=== PATIENT | male | born 1990 | race Caucasian/White ===

== ENCOUNTER 2017-10-29 02:02 | Emergency (ER) | payer SELFPAY ==
[2017-10-29] MEDS ORDERED: IPRATROPIUM/ALBUTEROL 0.5-2.5 MG/3 ML AMPUL NEB ONE (02:31)
[2017-10-29] MEDS ORDERED: PREDNISONE 20 MG TABLET PO ONE (02:31)
[2017-10-29] MEDS ORDERED: ACETAMINOPHEN 325 MG TABLET PO ONE (02:32)
--- NOTE | 2017-10-29 02:37 | ER Document Report ---
ED Respiratory Problem - General Chief Complaint: Asthma Exacerbation Stated Complaint: DIFFICULTY BREATHING Time Seen by Provider: 10/29/17 02:21 Mode of Arrival: Ambulatory Information source: Patient Notes: 27-year-old male presents to ED for shortness of breath chest tightness for the last 4 days. He states he is an asthmatic and has been since he was 18 going to school and fell out and they diagnosed him with asthma. He states he does have albuterol inhaler but he forgot that when he came to meet a girl in this area yesterday. States he does not take his normal medicines that he supposed to take for his medical history of ADHD PTSD bipolar panic attacks and anxiety because he does not like the way to make him feel. Says he does not go to doctors like he was supposed to. States she is the asthma tackled go on and off for 2 or 3 days uses an inhaler and it gets better but this time it is not. States he has been smoking since he was 8 years old and he smokes a pack to a pack and a half a day. TRAVEL OUTSIDE OF THE [place] IN LAST 30 DAYS: No - HPI Patient complains to provider of: Asthma, Cough, Short of breath Onset: Other - 4 days Duration: Continuous Initiating Event: URI, Other - Smoker Quality of pain: Other - Tight Severity: Moderate Pain Level: 3 Context: Hx asthma, Smoker Short of Breath: Mild Cough: Nonproductive Sputum amount: None At home treatment: Bronchodilators Associated symptoms: Chest pain/discomfort, Congestion, Cough, PND, Runny nose Similar symptoms previously: Yes Recently seen / treated by doctor: No - Related Data Allergies/Adverse Reactions: Penicillins Allergy (Verified 10/29/17 03:30) Past Medical History - General Information source: Patient - Social History Smoking Status: Current Every Day Smoker Cigarette use (# per day): Yes - 20-30 cigarettes a day Chew tobacco use (# tins/day): No Smoking Education Provided: Yes - 4 minutes Frequency of alcohol use: None Drug Abuse: None Occupation: Lost his job Lives with: Parents Family History: Reviewed & Not Pertinent Patient has suicidal ideation: No Patient has homicidal ideation: No - Past Medical History Cardiac Medical History: Reports: None Pulmonary Medical History: Reports: Hx Asthma EENT Medical History: Reports: None Neurological Medical History: Reports: None Endocrine Medical History: Reports: None Renal/ Medical History: Reports: None Malignancy Medical History: Reports None GI Medical History: Reports: None Musculoskeltal Medical History: Reports None Skin Medical History: Reports None Psychiatric Medical History: Reports: Hx Anxiety, Hx Attention Deficit Hyperactivity Disorder, Hx Bipolar Disorder, Hx Depression, Hx Post Traumatic Stress Disorder Traumatic Medical History: Reports: None Infectious Medical History: Reports: None Surgical Hx: Negative - Immunizations Immunizations up to date: Yes Hx Diphtheria, Pertussis, Tetanus Vaccination: Yes Review of Systems - Review of Systems Constitutional: No symptoms reported EENT: Nose discharge, Sinus discharge Cardiovascular: No symptoms reported Respiratory: Cough, Hurts to breathe, Short of breath, Wheezing Gastrointestinal: No symptoms reported Genitourinary: No symptoms reported Male Genitourinary: No symptoms reported Musculoskeletal: No symptoms reported Skin: No symptoms reported Hematologic/Lymphatic: No symptoms reported Neurological/Psychological: Anxiety -: Yes All other systems reviewed and negative Physical Exam - Vital signs Vitals: Temp Pulse Resp BP Pulse Ox 98.0 F 103 H 21 H 151/90 H 100 10/29/17 02:07 10/29/17 02:07 10/29/17 02:07 10/29/17 02:07 10/29/17 02:07 Interpretation: Normal - General General appearance: Appears well, Alert - HEENT Head: Normocephalic, Atraumatic Eyes: Normal Pupils: PERRL Ears: Normal External canal: Normal Tympanic membrane: Normal Sinus: Normal Nasal: Swelling, Clear rhinorrhea Mouth/Lips: Normal Mucous membranes: Normal Pharynx: Post nasal drainage Neck: Normal - Respiratory Respiratory status: No respiratory distress, Tachypnea. No: Respiratory distress, Agonal respirations, Cyanosis, Depressed respirations, Labored, Pursed lip breathing, Retractions, Tripod position Chest status: Nontender Breath sounds: Nonproductive cough. No: Rales, Rhonchi, Stridor, Wheezing Chest palpation: Normal - Cardiovascular Rhythm: Regular Heart sounds: Normal auscultation Murmur: No - Abdominal Inspection: Normal Distension: No distension Bowel sounds: Normal Tenderness: Nontender Organomegaly: No organomegaly - Back Back: Normal, Nontender - Extremities General upper extremity: Normal inspection, Nontender, Normal color, Normal ROM , Normal temperature General lower extremity: Normal inspection, Nontender, Normal color, Normal ROM , Normal temperature, Normal weight bearing. No: Marlene's sign - Neurological Neuro grossly intact: Yes Cognition: Normal Orientation: AAOx4 [place] Coma Scale Eye Opening: Spontaneous [place] Coma Scale Verbal: Oriented Ina Coma Scale Motor: Obeys Commands [place] Coma Scale Total: 15 Speech: Normal Motor strength normal: LUE, RUE, LLE, RLE Sensory: Normal - Psychological Associated symptoms: Normal affect, Normal mood - Skin Skin Temperature: Warm Skin Moisture: Dry Skin Color: Normal Course - Re-evaluation Re-evalutation: 10/29/17 06:09 Chest x-ray was negative. Patient was given a written report of the x-ray and a prescription for prednisone for his chronic asthma. Patient states he has an albuterol inhaler at home. He was treated with DuoNeb and albuterol nebulizer treatments here as well as prednisone 60 mg. Patient was instructed to please follow-up with the doctor and not to continue to just try to treat himself. - Vital Signs Vital signs: Temp Pulse Resp BP Pulse Ox 98.6 F 99 18 124/68 100 10/29/17 05:00 10/29/17 05:00 10/29/17 05:00 10/29/17 05:00 10/29/17 05:00 - Diagnostic Test Radiology reviewed: Image reviewed, Reports reviewed Discharge - Discharge Clinical Impression: Asthma exacerbation Qualifiers: Asthma severity: mild Asthma persistence: intermittent Qualified Code(s): J45.21 - Mild intermittent asthma with (acute) exacerbation Condition: Stable Disposition: HOME, SELF-CARE Instructions: Family Physicians / Practices Additional Instructions: ASTHMA: You have been diagnosed as having asthma. This is a condition where there is episodic tightness in the bronchial tubes. Allergies, infections, and polluted or cold air may be contributing factors. Emergency treatment of a severe asthma attack may include adrenaline shots , or bronchodilator aerosol. You may feel lightheaded, have a decreased exercise tolerance and a rapid pulse for an hour or two. Rest and get plenty of fluids. Home treatment of asthma requires bronchodilator drugs. These can be administered by injection, inhalation, or by mouth. Antibiotics and corticosteroids may be required for some patients. You should avoid chemical fumes, dusts, pollens, and exercising in very cold or dry air. If you smoke, stop!! If you develop a fever, increased wheezing, chest pain, or severe shortness of breath, you should contact the doctor immediately. STEROID MEDICATION: You have been given an injection of or oral medicine of the cortisone/ steroid class. This medication is used to control inflammation or allergy. Chidi t is usually only given for a short period of time, until the acute process subsides. There are usually no side effects from short-term use of cortisone-like medications. Some persons feel an increased sense of well-being and are not sleepy at bedtime. Long-term use of cortisone medications is best avoided, unless required for a severe condition. If your condition does not remit, or relapses after the course of corticosteroid medication, you should consult your physician. INHALED BRONCHODILATORS: You have received treatment(s) of and/or prescription for an inhaled bronchodilator -- a medication which stimulates the airways in the lung to dilate. This improves the flow of air in asthma, bronchitis, and emphysema. These medicines have some similarity to adrenaline, and can cause similar side effects: shakiness, racing heart, and a sense of nervousness. These side effects decrease with time. Contact your doctor if these side effects are severe. Do not over-use the medicine. Too-frequent use of the inhaler may make it ineffective. Call your doctor if the inhaler is not controlling your symptoms at the prescribed doses. SMOKING: If you smoke, you should stop smoking. The tar and chemicals in cigarette smoke are harmful. Smoking has been shown to cause: emphysema chronic bronchitis lung cancer mouth and throat cancer stomach and pancreas cancer premature aging defects In addition, smoking increases ear and lung infections in children of smokers. USE OF ACETAMINOPHEN (Tylenol): Acetaminophen may be taken for pain relief or fever control. It's much safer than aspirin, offering a wider range of "safe" dosages. It is safe during . Some brand names are Tylenol, Panadol, Datril, Anacin 3, Tempra, and Liquiprin. Acetaminophen can be repeated every four hours. The following are maximum recommended dosages: WEIGHT Dose Drops Elixir Chewable( 80mg) (LBS.) drprs=droppers tsp=teaspoon 6 40 mg 0.4 ml (1/2) 6-11 80 mg 0.8 ml (full) tsp 1 tab 12-16 120 mg 1 1/2 drprs 3/4 tsp 1 1/2 tabs 17-23 160 mg 2 drprs 1 tsp 2 tabs 24-30 240 mg 3 drprs 1 1/2 tsp 3 tabs 30-35 320 mg 2 tsp 4 tabs 36-41 360 mg 2 1/4 tsp 4 1/2 tabs 42-47 400 mg 2 1/2 tsp 5 tabs 48-53 480 mg 3 tsp 6 tabs 54-59 520 mg 3 1/4 tsp 6 1/2 tabs 60-64 560 mg 3 1/2 tsp 7 tabs 65-70 600 mg 3 3/4 tsp 7 1/2 tabs 71-76 640 mg 4 tsp 8 tabs 77-82 720 mg 4 1/2 tsp 9 tabs 83-88 800 mg 5 tsp 10 tabs >89 pounds or adults 650 mg to 900 mg Acetaminophen can be repeated every four hours. Maximum dose not to exceed 4000 mg a day. These maximum recommended dosages are slightly higher than the dosages written on the product container, but these dosages are very safe and below the toxic dosage for acetaminophen. FOLLOW-UP CARE: If you have been referred to a physician for follow-up care, call the physician s office for an appointment as you were instructed or within the next two days. If you experience worsening or a significant change in your symptoms, notify the physician immediately or return to the Emergency Department at any time for re-evaluation. Prescriptions: Prednisone [Deltasone 20 mg Tablet] 3 tab PO DAILY 5 Days tablet Forms: Elevated Blood Pressure, Smoking Cessation Education
[2017-10-29] MEDS ORDERED: ALBUTEROL SULFATE 0.083% NEB 2.5 MG/3 ML AMPUL NEB SCH (02:45)
--- NOTE | 2017-10-29 04:16 | RADIOLOGY REPORT (SQ) ---
EXAM DESCRIPTION: CHEST PA/LAT COMPLETED DATE/TIME: 10/29/2017 3:58 am REASON FOR STUDY: short of breath, cough COMPARISON: None. EXAM PARAMETERS: NUMBER OF VIEWS: two views TECHNIQUE: Digital Frontal and Lateral radiographic views of the chest acquired. RADIATION DOSE: NA LIMITATIONS: none FINDINGS: LUNGS AND PLEURA: No consolidation, pneumothorax or pleural effusion. MEDIASTINUM AND HILAR STRUCTURES: No masses or contour abnormalities. HEART AND VASCULAR STRUCTURES: Heart normal size. No evidence for failure. BONES: No acute findings. HARDWARE: None in the chest. IMPRESSION: No acute radiographic finding in the chest. TECHNICAL DOCUMENTATION: JOB ID: [id number] [employer]- All Rights Reserved
[2017-10-29 05:02] VITALS: BP 124/68
== END 2017-10-29 05:00 | disposition home or self-care (01) ==
LOC: ER 02:02
DX: J45.21 Mild intermittent asthma with (acute) exacerbation (principal); F17.210 Nicotine dependence, cigarettes, uncomplicated; Z88.0 Allergy status to penicillin
CPT/HCPCS: 94640; 99285; 71046; J7512; J7620

== ENCOUNTER 2018-06-20 14:48 | Emergency (ER) | payer SELFPAY ==
--- NOTE | 2018-06-20 15:14 | ER Document Report ---
HPI - HPI Patient complains to provider of: Cough Onset: Other - 2 weeks Pain Level: 2 Context: 28-year-old smoker male complaining of cough and congestion for 2 weeks. History of asthma. Albuterol metered-dose inhaler is out of date he has not nebulizer without medicine. Associated Symptoms: None Exacerbated by: Denies Relieved by: Denies Similar symptoms previously: Yes Recently seen / treated by doctor: No - ROS ROS below otherwise negative: Yes Systems Reviewed and Negative: Yes All other systems reviewed and negative Past Medical History - General Information source: Patient - Social History Smoking Status: Current Every Day Smoker Lives with: Spouse/Significant other Family History: Reviewed & Not Pertinent Pulmonary Medical History: Reports: Hx Asthma Renal/ Medical History: Denies: Hx Peritoneal Dialysis Psychiatric Medical History: Reports: Hx Anxiety, Hx Attention Deficit Hyperactivity Disorder, Hx Bipolar Disorder, Hx Depression, Hx Post Traumatic Stress Disorder - Immunizations Immunizations up to date: Yes Hx Diphtheria, Pertussis, Tetanus Vaccination: Yes Vertical Provider Document - CONSTITUTIONAL Agree With Documented VS: Yes Exam Limitations: No Limitations - INFECTION CONTROL TRAVEL OUTSIDE OF THE [place] IN LAST 30 DAYS: No - HEENT HEENT: Pharyngeal Erythema - NECK Neck: Supple. negative: Lymphadenopathy-Left, Lymphadenopathy-Right - RESPIRATORY Respiratory: Wheezing - Coarse bilateral inspiratory and expiratory - CARDIOVASCULAR Cardiovascular: Regular Rate, Regular Rhythm - NEURO Level of Consciousness: Awake - DERM Integumentary: No Rash Course - Re-evaluation Re-evalutation: 06/20/18 16:41 Chest x-ray is negative per rad but since he has been coughing with congestion for 2 weeks I will treat him with albuterol inhaler, prednisone, and azithromycin. 06/20/18 16:59 persistant coarse wheeze but not as severe, no sob, - Vital Signs Vital signs: Temp Pulse Resp BP Pulse Ox 98.3 F 75 18 133/78 H 98 06/20/18 14:54 06/20/18 14:54 06/20/18 14:54 06/20/18 14:54 06/20/18 14:54 Discharge - Discharge Clinical Impression: Bronchitis Condition: Good Disposition: HOME, SELF-CARE Instructions: Bronchitis With Bronchospasm (Wheezing) ([facility]), Inhaled Bronchodilators ([facility]), Steroid Medication Additional Instructions: Return to the emergency room if symptoms worsen Albuterol metered-dose inhaler 2 puffs every 3 hours for the cough and wheeze Prednisone for 4 more days Copy of negative imaging report given to you azithromycin since you have been sick for 2 weeks. Stop smoking. Prescriptions: Albuterol Sulfate [Ventolin 0.083% Neb 2.5 mg/3 mL Ampul] 2.5 mg NEB Q3HP PRN # 25 vial PRN Reason: Albuterol Sulfate [Proair HFA Inhalation Aerosol 8.5 gm MDI] 2 puff IH Q3HP PRN #1 hfa.aer.ad PRN Reason: Azithromycin [Zithromax] 250 mg PO DAILY #6 tablet Prednisone [Deltasone 20 mg Tablet] 40 mg PO DAILY #8 tablet Forms: Return to Work
[2018-06-20] MEDS ORDERED: IPRATROPIUM/ALBUTEROL 0.5-2.5 MG/3 ML AMPUL NEB ONE (15:23)
[2018-06-20] MEDS ORDERED: ALBUTEROL SULFATE 0.083% NEB 2.5 MG/3 ML AMPUL NEB ONE (15:23)
[2018-06-20] MEDS ORDERED: PREDNISONE 20 MG TABLET PO ONE (15:26)
--- NOTE | 2018-06-20 16:33 | RADIOLOGY REPORT (SQ) ---
EXAM DESCRIPTION: CHEST 2 VIEWS COMPLETED DATE/TIME: 06/20/2018 4:26 pm REASON FOR STUDY: cough COMPARISON: 10/29/2017. EXAM PARAMETERS: NUMBER OF VIEWS: two views TECHNIQUE: Digital Frontal and Lateral radiographic views of the chest acquired. RADIATION DOSE: NA LIMITATIONS: none FINDINGS: LUNGS AND PLEURA: No opacities, masses or pneumothorax. No pleural effusion. MEDIASTINUM AND HILAR STRUCTURES: No masses or contour abnormalities. HEART AND VASCULAR STRUCTURES: Heart normal size. No evidence for failure. BONES: No acute findings. HARDWARE: None in the chest. OTHER: No other significant finding. IMPRESSION: NO ACUTE RADIOGRAPHIC FINDING IN THE CHEST. TECHNICAL DOCUMENTATION: JOB ID: [id number] [employer] ID- All Rights Reserved Reading location - IP/workstation name: [email or web address]
[2018-06-20 16:57] VITALS: BP 134/65
== END 2018-06-20 16:57 | disposition home or self-care (01) ==
LOC: ER 14:48
DX: J45.909 Unspecified asthma, uncomplicated (principal); R05 Cough; F17.200 Nicotine dependence, unspecified, uncomplicated
CPT/HCPCS: 94640; 99283; 71046; J7512; J7620

== ENCOUNTER 2019-05-11 20:11 | Emergency (ER) | payer SELFPAY ==
[2019-05-11 20:25] VITALS: BP 137/79
--- NOTE | 2019-05-11 20:58 | ER Document Report ---
ED Medical Screen (RME) - General TRAVEL OUTSIDE OF THE [place] IN LAST 30 DAYS: No <NATASHA PIPER - Last Filed: 05/11/19 20:55> <EMERALDKRYSTIAN F - Last Filed: 05/12/19 02:12> - General Chief Complaint: Headache Stated Complaint: HEADACHE,DIZZY Time Seen by Provider: 05/11/19 20:45 Notes: Patient is a 29-year-old male presents to the emergency department with a chief complaint of headache. Patient states that about an hour and a half ago he was smoking weed. He reports that he smokes weed daily. Patient states he was smoking when he started to cough. Patient reports that he was coughing he felt like something busted in the back of his head. Patient states initially he had excruciating pain but now the pain has improved and he has a numbness type feeling behind his head. Patient also reports that he feels like he is going across side and that he is having some blurred vision in his right eye. Patient states he has a history of migraines and that this is different. (NATASHA PIPER) - Related Data Allergies/Adverse Reactions: Penicillins Allergy (Verified 06/20/18 14:50) Past Medical History Pulmonary Medical History: Reports: Hx Asthma Renal/ Medical History: Denies: Hx Peritoneal Dialysis Psychiatric Medical History: Reports: Hx Anxiety, Hx Attention Deficit Hyperactivity Disorder, Hx Bipolar Disorder, Hx Depression, Hx Post Traumatic Stress Disorder - Immunizations Immunizations up to date: Yes Hx Diphtheria, Pertussis, Tetanus Vaccination: Yes <NATASHA PIPER - Last Filed: 05/11/19 20:55> Physical Exam - HEENT Head: Normocephalic Eyes: Normal Conjunctiva: Normal Cornea: Normal Extraocular movements intact: Yes Eyelashes: Normal Pupils: PERRL -: right: Pupils uneven - Right slightly greater than left - Neurological Neuro grossly intact: Yes Orientation: AAOx4 [place] Coma Scale Eye Opening: Spontaneous Ina Coma Scale Verbal: Oriented [place] Coma Scale Motor: Obeys Commands Ina Coma Scale Total: 15 <NATASHA PIPER - Last Filed: 05/11/19 20:55> - Vital signs Vitals: Temp Pulse Resp BP Pulse Ox 98.8 F 89 16 137/79 H 98 05/11/19 20:24 05/11/19 20:24 05/11/19 20:24 05/11/19 20:24 05/11/19 20:24 Course <NATASHA PIPER - Last Filed: 05/11/19 20:55> - Diagnostic Test Radiology reviewed: Image reviewed, Reports reviewed <KRYSTIAN CORBIN - Last Filed: 05/12/19 02:12> - Re-evaluation Re-evalutation: 05/11/19 20:57 I have greeted and performed a rapid initial assessment of this patient. A comprehensive ED assessment and evaluation of the patient, analysis of test results and completion of the medical decision making process will be conducted by additional ED providers. (NATASHA PIPER) - Vital Signs Vital signs: Temp Pulse Resp BP Pulse Ox 98.8 F 89 16 137/79 H 98 05/11/19 20:24 05/11/19 20:24 05/11/19 20:24 05/11/19 20:24 05/11/19 20:24 Doctor's Discharge <NATASHA PIPER - Last Filed: 05/11/19 20:55> <KRYSTIAN CORBIN - Last Filed: 05/12/19 02:12> - Discharge Clinical Impression: Headache Condition: Good Disposition: ADMITTED INPATIENT Instructions: Headache ([facility])
--- NOTE | 2019-05-11 21:43 | RADIOLOGY REPORT (SQ) ---
CT HEAD WITHOUT IV CONTRAST EXAM DATE: 05/11/2019 8:54 PM CDT HISTORY: acute onset headache after coughing. COMPARISON: None. TECHNIQUE: CT scan of the brain without IV contrast. This exam was performed according to our departmental dose-optimization program, which includes automated exposure control, adjustment of the mA and/or kV according to patient size and/or use of iterative reconstruction technique. FINDINGS: The ventricles, cisterns, and sulci are age-appropriate. No evidence of acute infarction, intracranial hemorrhage, extra-axial fluid collection, or midline shift. Mucosal disease in the bilateral maxillary sinuses, greater on the right. No depressed skull fracture. IMPRESSION: 1. No acute intracranial findings. 2. Sinus mucosal inflammatory disease.
--- NOTE | 2019-05-11 22:50 | ER Document Report ---
ED General - General Chief Complaint: Headache Stated Complaint: HEADACHE,DIZZY Time Seen by Provider: 05/11/19 20:45 Notes: 29-year male presents with headache. He was laying in bed smoking marijuana out of a pipe and started coughing. During the cough he felt a pop in his occipital area of his head. He began having a headache and dizziness which lasted about an hour and is now improving. He has no unilateral neurologic symptoms ongoing neck stiffness fever chills or shortness of breath. He denies chest pain. Triage and a head CT was ordered. TRAVEL OUTSIDE OF THE [place] IN LAST 30 DAYS: No - Related Data Allergies/Adverse Reactions: Penicillins Allergy (Verified 06/20/18 14:50) Past Medical History - Social History Smoking Status: Current Every Day Smoker Chew tobacco use (# tins/day): No Frequency of alcohol use: Occasional Drug Abuse: Marijuana Family History: Reviewed & Not Pertinent Patient has suicidal ideation: No Patient has homicidal ideation: No Pulmonary Medical History: Reports: Hx Asthma Renal/ Medical History: Denies: Hx Peritoneal Dialysis Psychiatric Medical History: Reports: Hx Anxiety, Hx Attention Deficit Hyperactivity Disorder, Hx Bipolar Disorder, Hx Depression, Hx Post Traumatic Stress Disorder - Immunizations Immunizations up to date: Yes Hx Diphtheria, Pertussis, Tetanus Vaccination: Yes Review of Systems - Review of Systems Notes: REVIEW OF SYSTEMS GEN: Denies fever, chills, weight loss ENT: Denies sore throat, nasal discharge, ear pain EYES: Denies blurry vision, eye pain, discharge CV: Denies chest pain, palpitations, edema RESP: Denies cough, shortness of breath, wheezing GI: Denies abdominal pain, nausea, vomiting, diarrhea MSK: Denies joint pain/swelling, edema, SKIN: Denies rash, skin lesions LYMPH: Denies swollen glands/lymph nodes NEURO: Taken dizziness PSYCH: Denies depression, suicidal or homicidal ideation PHYSICAL EXAMINATION General: No acute distress, well-nourished Head: Atraumatic, normocephalic ENT: Mouth normal, oropharynx moist, no exudates or tonsillar enlargement Eyes: Conjunctiva normal, pupils equal, lids normal Neck: No JVD, supple, no guarding CVS: Normal rate, regular rhythm, no murmurs Resp: No resp distress, equal and normal breath sounds bilaterally GI: Nondistended, soft, no tenderness to palpation, no rebound or guarding Ext: No deformities, no edema, normal range of motion in upper and lower ext Back: No CVA or midline TTP Skin: No rash, warm Lymphatic: No lymphadeopathy noted Neuro: Awake, alert. Face symmetric. GCS 15. Intact speech fluent gait normal normal strength sensation and cranial nerves. Physical Exam - Vital signs Vitals: Temp Pulse Resp BP Pulse Ox 98.8 F 89 16 137/79 H 98 05/11/19 20:24 05/11/19 20:24 05/11/19 20:24 05/11/19 20:24 05/11/19 20:24 - HEENT Visual acuity- Right eye: 20/20 Visual acuity- Left eye: 20/20 Visual acuity- Both eyes: 20/20 Corrective lenses worn: Yes Course - Re-evaluation Re-evalutation: 05/11/19 23:33 Patient presents with headache after coughing in the setting of marijuana smoking. Differential includes sinus issueshe has sinus disease on his CAT scan, some issue with a cervical vertebral/cranial joints although he is moving his neck freely and has no tenderness. His pain is already improving spontane ous and his CAT scan is normal. He will be discharged home in stable condition. I have discussed with the patient there likely diagnosis, aftercare plan, follow-up plans and my usual and customary return precautions. They verbalized understanding of this. - Vital Signs Vital signs: Temp Pulse Resp BP Pulse Ox 98.8 F 89 16 137/79 H 98 05/11/19 20:24 05/11/19 20:24 05/11/19 20:24 05/11/19 20:24 05/11/19 20:24 - Diagnostic Test Radiology reviewed: Image reviewed, Reports reviewed Discharge - Discharge Clinical Impression: Headache Qualifiers: Headache type: other headache syndrome Qualified Code(s): G44.89 - Other headache syndrome Condition: Good Disposition: ADMITTED INPATIENT Instructions: Headache ([facility])
== END 2019-05-11 23:38 | disposition other institution (70) ==
LOC: ER 20:11
DX: G44.89 Other headache syndrome (principal); R42 Dizziness and giddiness; R05 Cough; F12.90 Cannabis use, unspecified, uncomplicated; F17.200 Nicotine dependence, unspecified, uncomplicated; J45.909 Unspecified asthma, uncomplicated
CPT/HCPCS: 70450; 99284

== ENCOUNTER 2020-05-04 13:41 | Emergency (ER) | payer SELFPAY ==
[2020-05-04 13:46] VITALS: BP 119/65
--- NOTE | 2020-05-04 14:07 | ER Document Report ---
HPI - HPI Time Seen by Provider: 05/04/20 14:01 Pain Level: 4 Notes: 30-year-old male presents to the emergency room for complaints of left ankle pain after he was on a chair yesterday trying to fix a blind, the chair wobbled and he said he sprained his ankle. Patient reports that he is already broken his left ankle 3 times already. Patient states that he did hear a crack when he twisted his ankle. Denies any other area of injury. Has tried icing and ibuprofen without full relief. Reports pain is 4 out of 5, throbbing achy. Denies fevers, chills, chest pain,palpitations, shortness of breath, dyspnea, nausea, vomiting, diarrhea, abdominal pain, hematuria,blurred vision, double vision, loss of vision, speech changes, LH, dizziness, syncope, headaches, wheezing, ST, URI, neck pain, weakness, bowel or bladder dysfunction, saddle anesthesia, numbness or tingling in bilateral upper or lower extremities equally, muscle paralysis, weakness in bilateral upper or lower extremities equally or rash. Denies IV drug use. MEDICATIONS: I agree with the patient medications as charted by the RN. ALLERGIES: I agree with the allergies as charted by the RN. PAST MEDICAL HISTORY/PAST SURGICAL HISTORY: Reviewed and agree as charted by RN. SOCIAL HISTORY: Reviewed and agree as charted by RN. FAMILY HISTORY: No significant familial comorbid conditions directly related to patient complaint EXAM: Reviewed vital signs as charted by RN. REVIEW OF SYSTEMS:reviewed vital signs by RN CONSTITUTIONAL : Denies fever, chills, or sweats. Denies recent illness. EENT: Denies eye, ear, throat, or mouth pain or symptoms. Denies nasal or sinus congestion or discharge. Denies throat, tongue, or mouth swelling or difficulty swallowing. CARDIOVASCULAR: Denies chest pain. Denies palpitations or racing or irregular heart beat. Denies ankle edema. RESPIRATORY: Denies cough, cold, or chest congestion. Denies shortness of breath, difficulty breathing, or wheezing. GASTROINTESTINAL: Denies abdominal pain or distention. Denies nausea, vomiting, or diarrhea. Denies blood in vomitus, stools, or per rectum. Denies black, tarry stools. Denies constipation. GENITOURINARY: Denies difficulty urinating, painful urination, burning, frequency, blood in urine, or discharge. MUSCULOSKELETAL: Reports left ankle pain. denies back or neck pain or stiffness. Denies joint pain or swelling. SKIN: Denies rash, lesions or sores. HEMATOLOGIC : Denies easy bruising or bleeding. LYMPHATIC: Denies swollen, enlarged glands. NEUROLOGICAL: Denies confusion or altered mental status. Denies passing out or loss of consciousness. Denies dizziness or lightheadedness. Denies headache. Denies weakness or paralysis or loss of use of either side. Denies problems with gait or speech. Denies sensory loss, numbness, or tingling. Denies seizures. PSYCHIATRIC: Denies anxiety or stress. Denies depression, suicidal ideation, or homicidal ideation. ALL OTHER SYSTEMS REVIEWED AND NEGATIVE. Dictation was performed using spigit recognition software PHYSICAL EXAMINATION: GENERAL: Well-appearing, well-nourished and in no acute distress. HEAD: Atraumatic, normocephalic. EYES: Pupils equal round and reactive to light, extraocular movements intact, sclera anicteric, conjunctiva are normal. ENT: Nares patent, oropharynx clear without exudates. Moist mucous membranes. NECK: Normal range of motion, supple without lymphadenopathy LUNGS: Breath sounds clear to auscultation bilaterally and equal. No wheezes rales or rhonchi. HEART: Regular rate and rhythm without murmurs ABDOMEN: Soft, nontender, nondistended abdomen. No guarding, no rebound. No masses appreciated. Musculoskeletal: Normal range of motion, no pitting or edema. No cyanosis. left ankle with swelling, tenderness on lateral aspect of ankle. pain with inversion. squeeze test negative. dtr +2 BLE. Limited APROM. distal pulses + 2 BLE equally. Full motor and sensory function of bilateral lower extremities. No noted open wounds or abrasion. Normal gait. No vascular compromise. Peroneal nerve is intact with strong eversion and plantar flexion. Negative anterior drawer test. muscle strength 5/5 in BLE equally. NEUROLOGICAL: Cranial nerves grossly intact. Normal speech, normal gait. Normal sensory, motor exams PSYCH: Normal mood, normal affect. SKIN: Warm, Dry, normal turgor, no rashes or lesions noted. - MUSCULOSKELETAL Musculoskeletal: REPORTS: Extremity pain - DERM Skin Color: Normal Past Medical History - General Information source: Patient - Social History Smoking Status: Current Every Day Smoker Frequency of alcohol use: Occasional Drug Abuse: None Family History: Reviewed & Not Pertinent Pulmonary Medical History: Reports: Hx Asthma Renal/ Medical History: Denies: Hx Peritoneal Dialysis Psychiatric Medical History: Reports: Hx Anxiety, Hx Attention Deficit Hyperactivity Disorder, Hx Bipolar Disorder, Hx Depression, Hx Post Traumatic Stress Disorder - Immunizations Immunizations up to date: Yes Hx Diphtheria, Pertussis, Tetanus Vaccination: Yes Vertical Provider Document - CONSTITUTIONAL Agree With Documented VS: Yes Exam Limitations: No Limitations General Appearance: WD/WN - INFECTION CONTROL TRAVEL OUTSIDE OF THE [place] IN LAST 30 DAYS: No Course - Re-evaluation Re-evalutation: 05/04/20 14:12 Afebrile vital stable no distress. Nurses notes reviewed. Left ankle x-ray foot x-ray negative for acute fracture dislocation or foreign body, noted swelling around the lateral malleolus. Advised to follow-up with digital specialist in the next 24 to 48 hours as well as getting another x-ray done in 5 days when soft tissue swelling has decreased to look for an occult fracture. Patient given Aircast as well as crutches. Advised to apply heat 20 minutes on 20 minutes off several times a day, take [id number] ibuprofen and Tylenol for pain. Patient given 5 mg 325 of [place] while in the emergency room. After performing a Medical Screening Examination, I estimate there is LOW risk for OPEN FRACTURE, COMPARTMENT SYNDROME, DEEP VENOUS THROMBOSIS, ACUTE TENDON RUPTURE, or NEUROVASCULAR INJURY thus I consider the discharge disposition reasonable. I have reevaluated this patient multiple times and no significant life threatening changes are noted. The patient and I have discussed the diagnosis and risks, and we agree with discharging home to closely follow-up with their primary doctor or the referral orthopedist with the understanding that symptoms and presentations can change. We also discussed returning to the Emergency Department immediately if new or worsening symptoms occur. We have discussed the symptoms which are most concerning (e.g., changing or worsening pain, numbness, weakness) that necessitate immediate return 05/04/20 16:18 05/04/20 16:18 - Vital Signs Vital signs: Temp Pulse Resp BP Pulse Ox 98.3 F 96 16 119/65 98 05/04/20 13:44 05/04/20 13:44 05/04/20 13:44 05/04/20 13:44 05/04/20 13:44 Discharge - Discharge Clinical Impression: Left ankle pain, Left foot pain Condition: Stable Disposition: HOME, SELF-CARE Instructions: Ankle Stirrup Splint ([facility]), Hernandez Wrap ([facility]), Use of Crutches ([facility]), Soft Ankle Splint ([facility]), Sprained Ankle ([facility]) Additional Instructions: Your x-ray of your x-ray of your x-ray was negative for any acute fracture dislocation. You were placed in an Aircast as well as crutches. Please follow- up with digital specialist and primary care provider in the next 24 to 48 hours. Take [id number] ibuprofen and Tylenol as needed for pain control. Prescriptions: Naproxen 500 mg PO BID #10 tablet Forms: Return to Work Referrals: RUY CARR MD [ACTIVE STAFF] - Follow up as needed ARMANDO MARRUFO MD [ACTIVE STAFF] - Follow up as needed
[2020-05-04] MEDS ORDERED: IBUPROFEN 800 MG TABLET PO ONE (14:11)
--- NOTE | 2020-05-04 14:49 | RADIOLOGY REPORT (SQ) ---
EXAM DESCRIPTION: ANKLE LEFT COMPLETE IMAGES COMPLETED DATE/TIME: 05/04/2020 2:38 pm REASON FOR STUDY: s/p twist last night, fx 3x before COMPARISON: None. NUMBER OF VIEWS: Three views. TECHNIQUE: AP, lateral, and oblique radiographic images acquired of the left ankle. LIMITATIONS: None. FINDINGS: MINERALIZATION: Normal. BONES: No acute fracture or dislocation. A well corticated ossific density lies adjacent to the tip of the lateral malleoli us, may represent normal anatomic variant. JOINTS: No effusions. SOFT TISSUES: Marked soft tissue swelling external to the lateral malleolus. OTHER: No other significant finding. IMPRESSION: 1. Marked soft tissue swelling external to the lateral malleolus. 2. No acute osseous findings. TECHNICAL DOCUMENTATION: JOB ID: [id number] 2010 [employer]- All Rights Reserved Reading location - IP/workstation name: [email or web address]
--- NOTE | 2020-05-04 14:51 | RADIOLOGY REPORT (SQ) ---
EXAM DESCRIPTION: FOOT LEFT COMPLETE IMAGES COMPLETED DATE/TIME: 05/04/2020 2:38 pm REASON FOR STUDY: s/p twist last night, fx 3x before COMPARISON: None. NUMBER OF VIEWS: Three views. TECHNIQUE: AP, lateral and oblique radiographic images acquired of the left foot. LIMITATIONS: None. FINDINGS: MINERALIZATION: Normal. BONES: No acute fracture or dislocation. No worrisome bone lesions. JOINTS: No effusions. SOFT TISSUES: Marked soft tissue swelling external to the lateral malleoli us. Small effusion at th e anterior ankle joint. OTHER: No other significant finding. IMPRESSION: 1. No acute osseous findings. TECHNICAL DOCUMENTATION: JOB ID: [id number] 2010 [employer]- All Rights Reserved Reading location - IP/workstation name: [email or web address]
[2020-05-04] MEDS ORDERED: HYDROCODONE/ACETAMINOPHEN 5-325 MG TABLET PO ONE (16:15)
== END 2020-05-04 16:35 | disposition home or self-care (01) ==
LOC: ER 13:41
DX: M25.572 Pain in left ankle and joints of left foot (principal); M79.672 Pain in left foot; M25.472 Effusion, left ankle; X50.0XXA Overexertion from strenuous movement or load, initial encounter; Y93.89 Activity, other specified; Y99.0 Civilian activity done for income or pay; F17.200 Nicotine dependence, unspecified, uncomplicated; J45.909 Unspecified asthma, uncomplicated; F90.9 Attention-deficit hyperactivity disorder, unspecified type; F31.9 Bipolar disorder, unspecified; Z79.899 Other long term (current) drug therapy
CPT/HCPCS: 99283